=== PATIENT | male | born 1990 | race African-American/Black ===

== ENCOUNTER 2018-02-24 20:21 | Emergency (ER) | payer MEDICAID ==
[~2018-02-24] VITALS: Ht 180.3 cm; Wt 74.8 kg
[~2018-02-24 20:21] MED LIST: ALBUPOW26
== END 2018-02-24 21:32 | disposition left against medical advice (07) ==
LOC: ER 20:21
DX: S01.312A Laceration without foreign body of left ear, initial encounter (principal); Z53.21 Procedure and treatment not carried out due to patient leaving prior to being seen by health care provider; Y04.0XXA Assault by unarmed brawl or fight, initial encounter; Y93.89 Activity, other specified; Y92.89 Other specified places as the place of occurrence of the external cause; Y99.8 Other external cause status